=== PATIENT | male | born 1960 | race Caucasian/White ===

== ENCOUNTER 2019-06-03 00:06 | Day surgery (SDC) | payer OTHER ==
[~2019-06-03 00:06] MED LIST: ALBU90OI INH; ALBU90OI PO; AMLO5; BENZ100A PO; CARV3.125 PO; CARV6.25 PO; Diovan320 MG PO; HYDCHL25 PO; Hydrochloroth12.5 MG; LORTAB 5-325 M1 EACH PO; Norco 5-325 Ta1 EACH PO; SERT50 PO; TRAM50 PO; Ultram50 MG PO; VICODIN HP 10-1 EACH PO; XARELTO10 MG PO; XARELTO20 MG PO; ZOLP5 PO; Zithromax250 MG PO; Zofran Odt8 MG SL
== END 2019-06-03 23:09 | disposition home or self-care (01) ==
LOC: WOUND 00:06
DX: L97.812 Non-pressure chronic ulcer of other part of right lower leg with fat layer exposed (principal)
CPT/HCPCS: G0463

== ENCOUNTER 2019-06-10 01:00 | Day surgery (SDC) | payer OTHER | END 2019-06-10 22:49 | disposition home or self-care (01) | LOC: WOUND 01:00 | DX: L97.812 Non-pressure chronic ulcer of other part of right lower leg with fat layer exposed (principal); I13.0 Hypertensive heart and chronic kidney disease with heart failure and stage 1 through stage 4 chronic kidney disease, or unspecified chronic kidney disease; I50.22 Chronic systolic (congestive) heart failure; I12.9 Hypertensive chronic kidney disease with stage 1 through stage 4 chronic kidney disease, or unspecified chronic kidney disease; N18.9 Chronic kidney disease, unspecified; Z72.0 Tobacco use; G47.33 Obstructive sleep apnea (adult) (pediatric); J44.9 Chronic obstructive pulmonary disease, unspecified ==

== ENCOUNTER 2019-06-17 00:05 | Day surgery (SDC) | payer OTHER | END 2019-06-17 22:38 | disposition home or self-care (01) | LOC: WOUND 00:05 | DX: L97.811 Non-pressure chronic ulcer of other part of right lower leg limited to breakdown of skin (principal); I13.0 Hypertensive heart and chronic kidney disease with heart failure and stage 1 through stage 4 chronic kidney disease, or unspecified chronic kidney disease; N18.9 Chronic kidney disease, unspecified; I50.22 Chronic systolic (congestive) heart failure; I48.0 Paroxysmal atrial fibrillation; E66.9 Obesity, unspecified; Z68.44 Body mass index [BMI] 60.0-69.9, adult; Z86.718 Personal history of other venous thrombosis and embolism ==

== ENCOUNTER 2019-06-24 00:39 | Day surgery (SDC) | payer OTHER | END 2019-06-24 22:49 | disposition home or self-care (01) | LOC: WOUND 00:39 | DX: L97.812 Non-pressure chronic ulcer of other part of right lower leg with fat layer exposed (principal); I13.0 Hypertensive heart and chronic kidney disease with heart failure and stage 1 through stage 4 chronic kidney disease, or unspecified chronic kidney disease; N18.9 Chronic kidney disease, unspecified; I50.22 Chronic systolic (congestive) heart failure; I48.0 Paroxysmal atrial fibrillation; E66.9 Obesity, unspecified; Z68.44 Body mass index [BMI] 60.0-69.9, adult ==

== ENCOUNTER 2019-07-01 00:29 | Day surgery (SDC) | payer OTHER | END 2019-07-01 22:48 | disposition home or self-care (01) | LOC: WOUND 00:29 | DX: S81.801A Unspecified open wound, right lower leg, initial encounter (principal); L97.812 Non-pressure chronic ulcer of other part of right lower leg with fat layer exposed; I10 Essential (primary) hypertension; I13.0 Hypertensive heart and chronic kidney disease with heart failure and stage 1 through stage 4 chronic kidney disease, or unspecified chronic kidney disease; I50.22 Chronic systolic (congestive) heart failure; G47.33 Obstructive sleep apnea (adult) (pediatric); J44.9 Chronic obstructive pulmonary disease, unspecified; E66.9 Obesity, unspecified; Z86.718 Personal history of other venous thrombosis and embolism ==

== ENCOUNTER 2019-07-15 00:22 | Day surgery (SDC) | payer OTHER | END 2019-07-15 22:42 | disposition home or self-care (01) | LOC: WOUND 00:22 | DX: L97.812 Non-pressure chronic ulcer of other part of right lower leg with fat layer exposed (principal); S80.11XD Contusion of right lower leg, subsequent encounter; L97.829 Non-pressure chronic ulcer of other part of left lower leg with unspecified severity; I13.0 Hypertensive heart and chronic kidney disease with heart failure and stage 1 through stage 4 chronic kidney disease, or unspecified chronic kidney disease; N18.9 Chronic kidney disease, unspecified; I50.22 Chronic systolic (congestive) heart failure ==

== ENCOUNTER 2019-07-17 13:53 | Day surgery (SDC) | payer OTHER | END 2019-07-17 22:54 | disposition home or self-care (01) | LOC: WOUND 13:53 | DX: L97.812 Non-pressure chronic ulcer of other part of right lower leg with fat layer exposed (principal); S80.11XD Contusion of right lower leg, subsequent encounter; I13.0 Hypertensive heart and chronic kidney disease with heart failure and stage 1 through stage 4 chronic kidney disease, or unspecified chronic kidney disease; I50.22 Chronic systolic (congestive) heart failure; N18.9 Chronic kidney disease, unspecified | CPT/HCPCS: G0463 ==

== ENCOUNTER 2019-07-29 00:22 | Day surgery (SDC) | payer OTHER | END 2019-07-29 22:45 | disposition home or self-care (01) | LOC: WOUND 00:22 | DX: L97.812 Non-pressure chronic ulcer of other part of right lower leg with fat layer exposed (principal); I13.0 Hypertensive heart and chronic kidney disease with heart failure and stage 1 through stage 4 chronic kidney disease, or unspecified chronic kidney disease; N18.9 Chronic kidney disease, unspecified; I50.22 Chronic systolic (congestive) heart failure; E66.9 Obesity, unspecified; G47.33 Obstructive sleep apnea (adult) (pediatric); F17.200 Nicotine dependence, unspecified, uncomplicated; F41.9 Anxiety disorder, unspecified; F32.9 Major depressive disorder, single episode, unspecified; J44.9 Chronic obstructive pulmonary disease, unspecified; Z68.44 Body mass index [BMI] 60.0-69.9, adult ==

== ENCOUNTER 2019-08-05 00:11 | Day surgery (SDC) | payer OTHER | END 2019-08-05 22:42 | disposition home or self-care (01) | LOC: WOUND 00:11 | DX: L97.812 Non-pressure chronic ulcer of other part of right lower leg with fat layer exposed (principal); I73.9 Peripheral vascular disease, unspecified; I13.0 Hypertensive heart and chronic kidney disease with heart failure and stage 1 through stage 4 chronic kidney disease, or unspecified chronic kidney disease; N18.9 Chronic kidney disease, unspecified; I50.22 Chronic systolic (congestive) heart failure; G47.33 Obstructive sleep apnea (adult) (pediatric); F32.9 Major depressive disorder, single episode, unspecified; F41.9 Anxiety disorder, unspecified; I48.0 Paroxysmal atrial fibrillation; J44.9 Chronic obstructive pulmonary disease, unspecified; M06.9 Rheumatoid arthritis, unspecified; E66.9 Obesity, unspecified; Z68.44 Body mass index [BMI] 60.0-69.9, adult; Z79.899 Other long term (current) drug therapy; Z88.5 Allergy status to narcotic agent; Z91.038 Other insect allergy status; Z91.09 Other allergy status, other than to drugs and biological substances | CPT/HCPCS: Q4196 ==

== ENCOUNTER 2019-08-14 15:41 | Day surgery (SDC) | payer OTHER | END 2019-08-14 23:16 | disposition home or self-care (01) | LOC: WOUND 15:41 | DX: L97.811 Non-pressure chronic ulcer of other part of right lower leg limited to breakdown of skin (principal); I13.0 Hypertensive heart and chronic kidney disease with heart failure and stage 1 through stage 4 chronic kidney disease, or unspecified chronic kidney disease; N18.9 Chronic kidney disease, unspecified; I50.22 Chronic systolic (congestive) heart failure; G47.33 Obstructive sleep apnea (adult) (pediatric); I48.0 Paroxysmal atrial fibrillation; J44.9 Chronic obstructive pulmonary disease, unspecified; F32.9 Major depressive disorder, single episode, unspecified; F41.9 Anxiety disorder, unspecified; G47.30 Sleep apnea, unspecified; M06.9 Rheumatoid arthritis, unspecified; E66.9 Obesity, unspecified; Z68.44 Body mass index [BMI] 60.0-69.9, adult; Z88.5 Allergy status to narcotic agent; Z91.038 Other insect allergy status; Z79.899 Other long term (current) drug therapy | CPT/HCPCS: G0463 ==

== ENCOUNTER 2021-09-08 12:48 | Emergency (ER) | payer OTHER ==
[~2021-09-08] VITALS: Ht 182.9 cm; Wt 210.9 kg
[2021-09-08] MEDS ORDERED: LOSA50 PO (13:03)
[2021-09-08] MEDS ORDERED: CEPH500 PO (15:01)
== END 2021-09-08 15:35 | disposition home or self-care (01) ==
LOC: ER 12:48
DX: L03.116 Cellulitis of left lower limb (principal); Z91.030 Bee allergy status; Z88.5 Allergy status to narcotic agent; Z79.899 Other long term (current) drug therapy; I10 Essential (primary) hypertension; I48.91 Unspecified atrial fibrillation; E66.9 Obesity, unspecified; F17.200 Nicotine dependence, unspecified, uncomplicated
CPT/HCPCS: 93971; 99284-25

== ENCOUNTER → 2021-09-29 | Outpatient (CLI) | payer OTHER ==
[~2021-09-29] MED LIST changes: +CEPH500 PO; +LOSA50 PO
== END | disposition home or self-care (01) ==
LOC: LAB SHORT 15:32
DX: R31.9 Hematuria, unspecified (principal)
CPT/HCPCS: 87086

== ENCOUNTER → 2023-01-29 | Outpatient (CLI) | payer OTHER ==
[2023-01-29 12:11] LABS: BASOPHILS ABSOLUTE AUTO 0.07 K/mm3 (0.00-0.23); BASOPHILS PERCENT AUTO 1 % (0-2); EOSINOPHILS ABSOLUTE AUTO 0.42 K/mm3 (0.00-0.68); EOSINOPHILS PERCENT AUTO 6 % (0-6); Hematocrit 41.3 % (37.0-53.0); Hemoglobin 13.1 g/dL (13.5-17.5); IMMATURE GRAN ABSOLUTE AUTO 0.02 K/mm3 (0.00-0.10); IMMATURE GRAN PERCENT AUTO 0 % (0-1); LYMPHOCYTES ABSOLUTE AUTO 0.89 K/mm3 (0.84-5.20); LYMPHOCYTES PERCENT AUTO 13 % (21-46); MONOCYTES ABSOLUTE AUTO 0.35 K/mm3 (0.16-1.47); MONOCYTES PERCENT AUTO 5 % (4-13); Mean Corpuscular HGB 28.7 pg (26.0-34.0); Mean Corpuscular HGB Conc 31.7 g/dL (31.5-36.5); Mean Corpuscular Volume 90 fL (80-100); Mean Platelet Volume 9.6 fL (9.1-12.4); NEUTROPHILS ABSOLUTE AUTO 4.98 K/mm3 (1.96-9.15); NEUTROPHILS PERCENT AUTO 74 % (41-73); Platelet Count 197 K/mm3 (150-400); RDW Coefficient Variation 13.2 % (11.7-14.2); RDW Standard Deviation 43.5 fL (35.1-46.3); Red Blood Cell Count 4.57 M/mm3 (4.30-5.90); White Blood Cell Count 6.73 K/mm3 (4.00-11.30)
[2023-01-29 12:14] LABS: Alanine Aminotransfer (ALT/SGP 20 U/L (12-78); Albumin/Globulin Ratio 0.8 (0.8-1.8); Alk Phos 89 U/L (50-136); Anion Gap 4 mmol/L (6-16); Aspartate Aminotrans (AST/SGOT 11 U/L (12-37); Bilirubin, Total 0.5 mg/dL (0.1-1.0); Blood Urea Nitrogen 16 mg/dL (8-24); Bun/Creatinine Ratio 13.2 (12.0-20.0); CHOL/HDL RATIO 2.9; CO2, Blood 26 mmol/L (21-32); Calcium, Blood 8.4 mg/dL (8.5-10.1); Chloride, Blood 106 mmol/L (98-108); Cholesterol 145 mg/dL (50-200); Creatinine, Blood 1.21 mg/dL (0.60-1.20); Globulin, Blood 3.7 g/dL (2.2-4.0); Glomerular Filtration Rate 67 (60-); Glucose, Blood 154 mg/dL (70-99); HDL Cholesterol 50 mg/dL (>39); LDL/HDL RATIO 1.6; Low Density Lipoprotein Chol 80 mg/dL (0-110); Sodium, Blood 136 mmol/L (136-145); Total Protein, Blood 6.7 g/dL (6.4-8.2); Triglycerides 75 mg/dL (30-160); Very Low Density Lipoprot Chol 15 mg/dL (6-32)
== END | disposition home or self-care (01) ==
LOC: LAB 09:40 → LAB SHORT 09:40
PROVIDERS: Nurse Practitioner Family
DX: J44.9 Chronic obstructive pulmonary disease, unspecified (principal); E66.01 Morbid (severe) obesity due to excess calories; I10 Essential (primary) hypertension; J41.1 Mucopurulent chronic bronchitis; Z68.44 Body mass index [BMI] 60.0-69.9, adult
CPT/HCPCS: 80053; 80061; 85025

== ENCOUNTER 2023-02-01 10:01 | Emergency (ER) | payer OTHER ==
[~2023-02-01] VITALS: Ht 180.3 cm; Wt 238.1 kg
[2023-02-01] MEDS ORDERED: Hydroxyzine HCl50 MG (10:13)
[2023-02-01] MEDS ORDERED: TRAZ150T57 PO (10:13)
[2023-02-01] MEDS ORDERED: ZOLOFT10013 PO (10:13)
[2023-02-01] MEDS ORDERED: Ventolin/Prove6.7 GM INH (10:13)
[2023-02-01] MEDS ORDERED: AMIT50 PO (10:13)
[2023-02-01] MEDS ORDERED: GABAPENTIN600 MG PO (10:13)
[2023-02-01 10:39] LABS: BASOPHILS ABSOLUTE AUTO 0.08 K/mm3 (0.00-0.23); BASOPHILS PERCENT AUTO 1 % (0-2); EOSINOPHILS ABSOLUTE AUTO 0.43 K/mm3 (0.00-0.68); EOSINOPHILS PERCENT AUTO 5 % (0-6); Hematocrit 44.4 % (37.0-53.0); Hemoglobin 14.1 g/dL (13.5-17.5); IMMATURE GRAN ABSOLUTE AUTO 0.03 K/mm3 (0.00-0.10); IMMATURE GRAN PERCENT AUTO 0 % (0-1); LYMPHOCYTES ABSOLUTE AUTO 0.92 K/mm3 (0.84-5.20); LYMPHOCYTES PERCENT AUTO 11 % (21-46); MONOCYTES ABSOLUTE AUTO 0.79 K/mm3 (0.16-1.47); MONOCYTES PERCENT AUTO 9 % (4-13); Mean Corpuscular HGB 28.5 pg (26.0-34.0); Mean Corpuscular HGB Conc 31.8 g/dL (31.5-36.5); Mean Corpuscular Volume 90 fL (80-100); Mean Platelet Volume 9.1 fL (9.1-12.4); NEUTROPHILS ABSOLUTE AUTO 6.53 K/mm3 (1.96-9.15); NEUTROPHILS PERCENT AUTO 74 % (41-73); Platelet Count 230 K/mm3 (150-400); RDW Coefficient Variation 13.2 % (11.7-14.2); RDW Standard Deviation 42.9 fL (35.1-46.3); Red Blood Cell Count 4.95 M/mm3 (4.30-5.90); White Blood Cell Count 8.78 K/mm3 (4.00-11.30)
[2023-02-01 10:53] LABS: Albumin, Blood 3.3 g/dL (3.4-5.0); Albumin/Globulin Ratio 0.8 (0.8-1.8); Creatinine, Blood 1.13 mg/dL (0.60-1.20); Globulin, Blood 4.2 g/dL (2.2-4.0); Total Protein, Blood 7.5 g/dL (6.4-8.2)
[2023-02-01] MEDS ORDERED: PRED20 PO (12:39)
[2023-02-01] MEDS ORDERED: AZIT250 PO (12:42)
[2023-02-01] MEDS ORDERED: HYDR1TAB94 PO (12:42)
[2023-02-01 12:45] VITALS: BP 149/90
== END 2023-02-01 13:12 | disposition home or self-care (01) ==
LOC: ER 10:01
PROVIDERS: Emergency Medicine
DX: J44.1 Chronic obstructive pulmonary disease with (acute) exacerbation (principal); I48.91 Unspecified atrial fibrillation; F17.210 Nicotine dependence, cigarettes, uncomplicated; Z86.718 Personal history of other venous thrombosis and embolism; Z79.01 Long term (current) use of anticoagulants
CPT/HCPCS: 71046; 80053; 83880; 85025; 85379; 96374; 99284-25; A9270; J2930

== ENCOUNTER 2023-02-02 11:15 | Emergency (ER) | payer OTHER ==
[~2023-02-02] VITALS: Ht 172.7 cm; Wt 226.8 kg
[~2023-02-02 11:15] MED LIST changes: +AMIT50 PO; -AMLO5; +AMLO5 PO; +AZIT250 PO; +GABAPENTIN600 MG PO; +HYDR1TAB94 PO; +Hydroxyzine HCl50 MG; +PRED20 PO; +TRAZ150T57 PO; +Ventolin/Prove6.7 GM INH; +ZOLOFT10013 PO
[2023-02-02 11:59] VITALS: BP 146/101
== END 2023-02-02 19:00 | disposition home or self-care (01) ==
LOC: ER 11:15
DX: M25.511 Pain in right shoulder (principal); M54.2 Cervicalgia; W18.30XA Fall on same level, unspecified, initial encounter; Z88.5 Allergy status to narcotic agent; Z91.030 Bee allergy status; Z79.899 Other long term (current) drug therapy; I48.91 Unspecified atrial fibrillation; F17.200 Nicotine dependence, unspecified, uncomplicated
CPT/HCPCS: 72040; 73030; 99284-25; A9270

== ENCOUNTER 2023-02-04 11:50 | Observation (INO) | payer OTHER ==
[~2023-02-04] VITALS: Ht 180.3 cm; Wt 243.0 kg
[~2023-02-04 11:50] MED LIST changes: -Ventolin/Prove6.7 GM INH
[2023-02-04 13:23] LABS: BASOPHILS ABSOLUTE AUTO 0.02 K/mm3 (0.00-0.23); BASOPHILS PERCENT AUTO 0 % (0-2); EOSINOPHILS PERCENT AUTO 0 % (0-6); Hematocrit 42.7 % (37.0-53.0); Hemoglobin 13.9 g/dL (13.5-17.5); IMMATURE GRAN ABSOLUTE AUTO 0.03 K/mm3 (0.00-0.10); IMMATURE GRAN PERCENT AUTO 0 % (0-1); LYMPHOCYTES PERCENT AUTO 7 % (21-46); MONOCYTES ABSOLUTE AUTO 0.75 K/mm3 (0.16-1.47); MONOCYTES PERCENT AUTO 8 % (4-13); Mean Corpuscular HGB 28.5 pg (26.0-34.0); Mean Corpuscular HGB Conc 32.6 g/dL (31.5-36.5); Mean Corpuscular Volume 88 fL (80-100); Mean Platelet Volume 9.1 fL (9.1-12.4); NEUTROPHILS ABSOLUTE AUTO 7.53 K/mm3 (1.96-9.15); NEUTROPHILS PERCENT AUTO 84 % (41-73); Platelet Count 218 K/mm3 (150-400); RDW Coefficient Variation 13.2 % (11.7-14.2); RDW Standard Deviation 42.1 fL (35.1-46.3); Red Blood Cell Count 4.87 M/mm3 (4.30-5.90); White Blood Cell Count 8.93 K/mm3 (4.00-11.30)
[2023-02-04 13:39] LABS: Bun/Creatinine Ratio 26.2 (12.0-20.0); Calcium, Blood 8.7 mg/dL (8.5-10.1); Creatinine, Blood 1.07 mg/dL (0.60-1.20); Potassium, Blood 4.1 mmol/L (3.5-5.5)
[2023-02-05 10:17] LABS: Influenza A, PCR NEGATIVE (NEGATIVE); Influenza B, PCR NEGATIVE (NEGATIVE); Resp Syncytial Virus, PCR NEGATIVE (NEGATIVE); SARS-Cov-2 (COVID-19) PCR, MMC NEGATIVE (NEGATIVE)
[2023-02-05] MEDS ORDERED: HYDHCL25 PO ×2 (16:20→17:56)
[2023-02-05 16:47] VITALS: BP 116/86
[2023-02-05 19:50] VITALS: BP 141/67
--- NOTE | 2023-02-06 05:28 | NUR ---
Shift Summary Pt is bedrest d/t obeisity and R leg weakness/injury. He has a recent history of falls. He has urinary urgency, needs help with the urinal. Disposable pads are placed under is perineal area to absorb moisture. Pt rcvd mukund-care bath this shift, there is redness around his ground and under folds around belly. He has a friction wound burn on his L buttocks, Mepilex was replaced last night. C/O pain in R leg, rcvd a one time order for Toradol from hospitalist. Pt on CPAP at night. Pt on RA and cont. BiOX, O2 sat > 92%. Awaiting SNF placement. AOx4, pleasant and cooperative with care.
[2023-02-06 05:38] VITALS: BP 144/84
[2023-02-06 08:07] VITALS: BP 151/76
--- NOTE | 2023-02-06 10:32 | NUR ---
PT COUGHING UP BLOOD REPORTED TO DR. RÍOS
[2023-02-06 15:34] VITALS: BP 142/77
--- NOTE | 2023-02-06 17:50 | NUR ---
SHIFT SUMMARY PT A&OX4 AND IN PLEASENT MOOD. PHYSICAL THERAPY CAME TO WORK W/ PT TODAY, UNABLE TO PERFORM BED EXERSIZE, ATTEMPTED TO FIND BARIATRIC CHAIR FOR ROOM. TOLERATING PO INTAKE WELL, VSS. AT BEDSIDE T/O SHIFT. RED FOLDS REPORTED TO AND MEDICATED PER EMAR. CALL LIGHT W/IN REACH.
[2023-02-06 19:26] VITALS: BP 144/70
[2023-02-07 05:19] VITALS: BP 130/79
--- NOTE | 2023-02-07 05:58 | NUR ---
Shift Summary Pt did not cough up any blood this shift. Rcvd 1 dose of 15mg Toradol for 8/10 R knee pain. He has significant red areas under folds, cleansed those areas with soap and water and applied Nystatin powder. Pt requested PRN yuliana beltran. Slept with CPAP and cont. BiOX. He had several desaturations down to mid 80's which would last from 5-100 seconds and then O2 would go back to greater than 92. Calls appropriatly for help with urinal when needing to void. Slept well t/o most of the night. AOx4. pleasant and cooperative.
[2023-02-07 07:36] VITALS: BP 142/93
[2023-02-07 15:13] VITALS: BP 147/84
--- NOTE | 2023-02-07 17:40 | NUR ---
SHIFT SUMMARY: PT A/O X4, LIFT PT. PT PAIN TO R KNEE MANAGED WITH REPOSITIONING AND TORADOL. PT ABLE TO REPOSITION SELF, AND ASSIST WITH ROLL CHANGES BY ROLLING TO SIDE. PT DOES NEED ASSISTANCE AND VERBAL CUES TO REPOSITION. PT CONITNUES TO HAVE REDDENED MOIST AREAS TO SKIN FOLDS WITH YEAST SMELL. SKIN FOLDS CLEANSED AND DRIED AND APPLIED METRONIDAZOLE POWDER. PT HAS ABRASION TO L SIDE HIP WHICH HE DESCRIBES HE OBTAINED FROM BEING DRAGGED OUT OF HIS BATHROOM ON THE CARPET BY EMS. WOUND CLEANSED AND PATTED DRY, MEPILEX DRESSING APPLIED. WOUND BED HAS SCANT BLEEDING WITH NO SIGNS OF INFECTION. PT CONTINUES TO COUGH UP PINK TINGED SPUTUM THROUGHOUT THE DAY AND COMPLAINS "MY VOCAL CORDS HURT." PT DENIES SORE THROAT. LS ARE CLEAR. PT IS PLEASANT AND COOPERATIVE WITH CARE.
[2023-02-07 20:11] VITALS: BP 128/92
--- NOTE | 2023-02-08 04:30 | NUR ---
PATIENT A&OX4, COOPERATIVE WITH CARE. ABLE TO HELP WITH REPOSITIONING IN BED. RIGHT KNEE PAIN RANGED FROM 6-10/10. MANAGED WITH 15MG TORADOL AND TYLENOL. CALLS APPROPRIATELY. LOOKING FORWARD TO POSSIBILITY OF BARIATRIC SURGERY SOMETIME THIS YEAR AFTER COMPLETING PT REHAB FOR HIS RIGHT LEG
[2023-02-08 08:46] VITALS: BP 155/93
[2023-02-08 15:47] VITALS: BP 139/82
--- NOTE | 2023-02-08 18:18 | NUR ---
SHIFT SUMMARY: PT A/O X 4, LIFT PT TO CHAIR. PT UP TO CHAIR THROUGH LUNCH. WORKED WITH PT AND WAS ABLE TO STAND WITH WALKER BUT R KNEE WOULD BUCKLE IF HE ATTEMPTED TO TAKE A STEP. PT PT R KNEE PAIN MANAGED WITH TORADOL AND TYLENOL AT THIS TIME. PT PLEASANT AND COOPERATIVE WITH CARE. PT TAKING ACTIVE INTEREST IN DIET EDUCATION. PARTICIPATES WELL WITH PT. RASH TO SKIN FOLDS IMPROVING.
[2023-02-08 19:24] VITALS: BP 116/74
--- NOTE | 2023-02-09 03:32 | NUR ---
PATIENT AWAKE FREQUENTLY THROUGHOUT THE NIGHT. MULTIPLE EPISODES OF LARGE URINE INCONTINENCE EACH TIME PATIENT WOULD FALL ASLEEP. KEENAN IS ABLE TO ASSIST IN TURNING IN BED WHICH IS A BIG HELP TO THE STAFF. WOUNDS UNDER PANNUS ARE QUITE RAW. AREA CLEANSED WITH SOFT WIPES AND WOUND CLEANSER AND DRIED, THEN NYSTATIN POWDER APPLIED TO NON OPEN AREAS, AND CREAM TO AREAS THAT HAVE SPLIT. PILLOWCASES PLACED TO TRY TO AVOID THE INCREASED MOISTURE BETWEEN CLEANSINGS. WOULD APPRECIATE NYSTATIN CREAM FOR OPENED AREAS. PATIENT VERY PLEASANT AND COOPERATIVE WITH CARE
[2023-02-09 05:02] VITALS: BP 143/72
[2023-02-09 05:24] LABS: Hematocrit 40.4 % (37.0-53.0); Hemoglobin 13.3 g/dL (13.5-17.5); Mean Corpuscular HGB 28.3 pg (26.0-34.0); Mean Corpuscular HGB Conc 32.9 g/dL (31.5-36.5); Mean Corpuscular Volume 86 fL (80-100); Platelet Count 259 K/mm3 (150-400); RDW Coefficient Variation 13.2 % (11.7-14.2); RDW Standard Deviation 40.9 fL (35.1-46.3); White Blood Cell Count 11.88 K/mm3 (4.00-11.30)
[2023-02-09 06:07] LABS: Bun/Creatinine Ratio 31.3 (12.0-20.0); Calcium, Blood 8.5 mg/dL (8.5-10.1); Creatinine, Blood 1.15 mg/dL (0.60-1.20); Potassium, Blood 4.3 mmol/L (3.5-5.5)
[2023-02-09 07:41] VITALS: BP 144/91
[2023-02-09 17:00] VITALS: BP 178/91
[2023-02-09 18:09] VITALS: BP 181/81
--- NOTE | 2023-02-09 18:53 | NUR ---
SHIFT SUMMARY PT A&OX4, VSS/2LNC, TCDB EDU/ENC/DEMONSTRATED, UP TO CHAIR FOR FEW HOURS/LIFT TO RETURN PT TO BED, PT CAN REPOSITION SELF WITH TREND POSITION, SERA PO, VOIDING LG AMTS URINE/FEM URINAL W/ 2 PP ASSIST, PAIN MANAGED WITH TORADOL, WILL REPORT TO ONCOMING NOC RN.
[2023-02-09 19:10] VITALS: BP 138/88
[2023-02-10 04:12] VITALS: BP 139/96
--- NOTE | 2023-02-10 06:20 | NUR ---
TORADOL REQUESTED BY PATIENT Q8 HOURS FOR KNEE PAIN. AO, PLEASANT, DID TRANSFER OUT OF BED LAST NIGHT. PUREWICK EFFECTIVE FOR VOIDING. ASSISTS WITH BED MOBILITY, NWB ON RLE. NO EVENTS DURING THE SHIFT.
[2023-02-10 07:35] VITALS: BP 142/98
[2023-02-10 15:34] VITALS: BP 142/81
--- NOTE | 2023-02-10 19:44 | NUR ---
SUMMARY-NO ACUTE EVENTS THIS SHIFT. AAOX4. X2 ASSIST IN BED. CALM AND COOPERATIVE.
[2023-02-10 19:52] VITALS: BP 144/92
--- NOTE | 2023-02-11 03:56 | NUR ---
shift summery, Pt requested an hs snack at bedtime ans was given a sandwitch. pt also requested toridol for pain. pt given all his hs meds and appeared to be sleeping comfortably. call light in reach. pt has purewick and pt is putting out clear yellow urine.
[2023-02-11 03:58] VITALS: BP 140/89
[2023-02-11 07:20] VITALS: BP 159/88
[2023-02-11 14:48] VITALS: BP 123/74
--- NOTE | 2023-02-11 17:47 | NUR ---
SUMMARY- NO ACUTE EVENTS THIS SHIFT. PT KEPT HAVING INCONTINENT EPISODES/FULL BED CHANGES WITH PURE WICK IN PLACE. RN REMOVED PURE WICK AND ASKED PT TO CALL EVERY TIME HE HAD TO URINATE. PT HAS HAD ZERO INCONTINENT EPISODES THIS SHIFT SINCE THIS MORNING.
[2023-02-11 19:34] VITALS: BP 137/74
--- NOTE | 2023-02-11 23:55 | NUR ---
BEGINNING OF SHIFT THIS STUDENT NURSE ASSUMED CARE OF THE PT AT 1900. PT A&O X4, COMPLAINED OF 9/10 PAIN TO HIS RLE. NURSE DAINA DANGELO ADMINISTERED TORADOL FOR PAIN, AND WAS INFORMED THAT NAPROXEN WOULD BE ADMINISTERED INSTEAD OF TORADOL Q8 HOURS FOR PAIN. PT REQUESTED THE BEDPAN AND WAS CONTINENT OF BOWELS. THIS STUDENT NURSE ADMINISTERED HS MEDICATIONS AND PREFORMED HIS PHYSICAL ASSESSMENT. PRESCRIBED ELAVIL WITHHELD DUE TO ADVERSE INTERACTIONS WIH ADMINISTERED TRAZODONE. WILL RELAY TO DAY SHIFT AND PROVIDER. PATIENT LEFT IN STATE OF COMFORT AND SAFETY, CALL LIGHT WITHIN REACH, TOP BED RAILS RAISED.
[2023-02-12 02:20] VITALS: BP 118/67
--- NOTE | 2023-02-12 04:30 | NUR ---
SHIFT SUMMARY THIS STUDENT NURSE ADRESSED PT'S PAIN THROUGHOUT THE SHIFT, AND MAINTAINED ADEQUATE PRECAUTIONS TO PREVENT FUTURE FALLS. PATIENT REMAINED A&O X4 AND UNDERSTOOD OWN LIMITATIONS. STAFF PRESENT TO HELP WITH ANY NECCESSARY AMBULATION/BED POSITIONING, AND PT REMAINED ON BED REST. PT ADMINISTERED THE PRESCRIBED AMBIEN BY NURSE DAINA DANGELO, AND RESTED COMFORTABLY THROUGH THE SHIFT AFTER ABOUT 0030. CPAP APPLIED BY RESPIRATORY THERAPY. PT REMAINED IN A STATE OF SAFETY THROUGHOUT MY SHIFT, NONSKID SOCKS PRESENT, BEDREST MAINTAINED, TOP BED RAILS RAISED, AND CALL LIGHT WITHIN REACH. WILL CONTINUE TO MONITOR THROUGH MY SHIFT.
--- NOTE | 2023-02-12 04:59 | NUR ---
I HAVE OBSERVED STUDENT INTERACTION/NURSING PERFORMANCE WITH PT AND AGRE WITH HER DOCUMENTATION. - RE MADELINE ESQUEDA STUDENT
[2023-02-12 07:37] VITALS: BP 152/86
[2023-02-12 14:43] VITALS: BP 130/82
--- NOTE | 2023-02-12 18:31 | NUR ---
SUMMARY-PT A/O X4- USES CALL LIGHT. 2-3 PERSON ROLL FOR SKIN CARE AND LINEN CHANGE. USES URINAL BUT FREQ MESSES RELATED TO LG PANUS AND ANATOMY. CLEANSED RED/YEASTY SKIN FOLDS, SOME WITH AREA OF SKINN SPLIT IN R PECTORAL FOLD AND L GROIN FOLD, APPLIED SKIN BARRIER AND MICONAZOLE. PT C/O PAIN IN R KNEE SINCE FALL. TYLENOL INEFFECTIVE THIS AM. ULTRAM GIVEN 1320 WITH MOD RELEIF- STATES IT TOOK THE EDGE OFF. PT DECLINED TO WORK WITH PT/OT TODAY, STATING HE IS TOO EXHAUSTED FROM PREVOUS DAY. PT TOLERATING FOOD AND FLUID. WILL REPORT TO LAUREN WYATT
[2023-02-12 19:46] VITALS: BP 134/79
[2023-02-13 01:21] VITALS: BP 117/68
[2023-02-13 02:53] VITALS: BP 123/62
--- NOTE | 2023-02-13 04:09 | NUR ---
SHIFT MOSTLY UNREMARKABLE. PT TOOK 2100 MEDICATIONS WITHOUT DIFFICULTY AND HAS SLEPT THROUGH MUCH OF REMAINDER OF SHIFT. CALLS APPROPRIATELY TO HAVE ASSISTANCE WITH URINAL. AWOKE EARLY THIS MORNING WITH REPORTED 10/10 PAIN ON THE TOP OF HIS RIGHT FOOT. ASSESSMENT UNREMARKABLE, NO STREAKING, SWELLING, REDNESS, WARMTH, ETC. NOT TENDER TO THE TOUCH. PT THOUGHT IT MAY BE DUE TO PROLONGED USE OF COMPRESSION STOCKINGS. HX OF NEUROPATHY. REMOVED COMPRESSION STOCKINGS FOR TIME BEING AND ADMINISTERED PRN PAIN MEDICATION PT HAS BEEN SLEEPING SINCE. CPAP ON OVER THE COURSE OF THE LATE EVENING AND MORNING, SATTING >92% ON CONTINUOUS PULSE OX. BED LOCKED IN LOWEST POSITION. CALL LIGHT LEFT WITHIN REACH.
[2023-02-13 07:44] VITALS: BP 145/83
[2023-02-13 16:07] VITALS: BP 134/63
--- NOTE | 2023-02-13 16:22 | NUR ---
PATIENT IS ALERT AND ORIENTED AND COOPERATIVE WITH CARE. [facility]. HE WORKED WITH OT TODAY AND AMBULATED IN HIS ROOM. PATIENT NEEDS ASSISTANCE USING THE URINAL. HE HAD A BM ON THE BSC TODAY. PATIENT'S WAS AT THE BEDSIDE FOR A SHORT TIME TODAY. PAIN MANAGED WITH TYLENOL PER EMAR. WILL CONTINUE TO MONITOR
[2023-02-13 19:10] VITALS: BP 130/61
[2023-02-14 03:20] VITALS: BP 127/68
--- NOTE | 2023-02-14 05:53 | NUR ---
PATIENT REMAINS ALERT AND ORIENTED X4, COOPERATIVE WITH CARE. REMAINED IN BED FOR THE NIGHT, AND IS A LIFT OTHERWISE. GOOD U/O, CALLS FOR URINAL ASSISTANCE, NO BM THIS SHIFT. OPEN AREAS IS ALL SKIN FOLDS TREATED WITH CREAMS AND POWDER PER MAR. NO OTHER ISSUES TO REPORT.
[2023-02-14 07:24] VITALS: BP 136/91
[2023-02-14] MEDS ORDERED: ACET500 PO (10:08)
[2023-02-14] MEDS ORDERED: MICONAZOLE NITR85 GM TOP (10:09)
[2023-02-14] MEDS ORDERED: TRAM50 PO (10:10)
[2023-02-14] MEDS ORDERED: FAMO20 PO (10:10)
== END 2023-02-14 16:15 | disposition home health service (06) ==
LOC: ER 11:50 → ERHOLD 11:51 → MEDS 11:51
PROVIDERS: Student in an Organized Health Care Education/Training Program; ADMIT Internal Medicine
DX: M17.11 Unilateral primary osteoarthritis, right knee (principal); I48.91 Unspecified atrial fibrillation; E66.01 Morbid (severe) obesity due to excess calories; J44.9 Chronic obstructive pulmonary disease, unspecified; R29.6 Repeated falls; R04.2 Hemoptysis; I10 Essential (primary) hypertension; F17.200 Nicotine dependence, unspecified, uncomplicated; Z20.822 Contact with and (suspected) exposure to COVID-19; Z91.030 Bee allergy status; Z88.5 Allergy status to narcotic agent; Z91.038 Other insect allergy status; Z79.899 Other long term (current) drug therapy; Z79.01 Long term (current) use of anticoagulants; Z79.52 Long term (current) use of systemic steroids; Z86.718 Personal history of other venous thrombosis and embolism; Z86.711 Personal history of pulmonary embolism; Z68.45 Body mass index [BMI] 70 or greater, adult
CPT/HCPCS: 0241U; 36415; 73562-RT; 80048; 84443; 85025; 85027; 93971; 94640; 94660; 94664; 94762; 96374; 96376; 97110; 97162; 97165; 97530; 97535; 99285-25; A9270; C9113; G0378; J1885; J7512

== ENCOUNTER → 2023-03-08 | Outpatient (CLI) | payer OTHER ==
[~2023-03-08] MED LIST changes: +ACET500 PO; +FAMO20 PO; +HYDHCL25 PO; +MICONAZOLE NITR85 GM TOP
[2023-03-08 11:21] LABS: Albumin, Blood 2.8 g/dL (3.4-5.0); Albumin/Globulin Ratio 0.8 (0.8-1.8); Bilirubin, Total 0.6 mg/dL (0.1-1.0); Bun/Creatinine Ratio 11.5 (12.0-20.0); Calcium, Blood 8.7 mg/dL (8.5-10.1); Creatinine, Blood 1.31 mg/dL (0.60-1.20); Globulin, Blood 3.7 g/dL (2.2-4.0); Potassium, Blood 3.7 mmol/L (3.5-5.5); Total Protein, Blood 6.5 g/dL (6.4-8.2)
== END | disposition home or self-care (01) ==
LOC: LAB SHORT 09:00 → LAB 09:00
PROVIDERS: Nurse Practitioner Family
DX: E11.65 Type 2 diabetes mellitus with hyperglycemia (principal); Z91.89 Other specified personal risk factors, not elsewhere classified
CPT/HCPCS: 80053; 83036

== ENCOUNTER 2023-04-11 13:42 | Emergency (ER) | payer OTHER ==
[~2023-04-11] VITALS: Ht 180.3 cm; Wt 235.9 kg
[~2023-04-11 13:42] MED LIST changes: +Acetaminophen650 M1 PO; +BUSP10 PO; +CORTISONE60 GM TOP; +Cleocin HCl150 MG PO; +FUROSEMIDE20 MG PO; +NYAMYC15 G1 TOP; +NYSTOP15 GM TOP; +SULFAMETHOXAZO1 EAC1 PO; +VISBIOME 112.51 EACH PO
[2023-04-11 17:00] VITALS: BP 102/56
[2023-04-11] MEDS ORDERED: DOCU100 PO (18:46)
[2023-04-11] MEDS ORDERED: SENN187 PO (18:46)
[2023-04-11] MEDS ORDERED: MIRALAX17 GM PO (18:46)
== END 2023-04-11 20:26 | disposition home or self-care (01) ==
LOC: ER 13:42
DX: K59.00 Constipation, unspecified (principal); E66.01 Morbid (severe) obesity due to excess calories; F17.200 Nicotine dependence, unspecified, uncomplicated; M17.0 Bilateral primary osteoarthritis of knee; R53.81 Other malaise; N18.30 Chronic kidney disease, stage 3 unspecified; Z68.45 Body mass index [BMI] 70 or greater, adult; Z88.5 Allergy status to narcotic agent; Z91.030 Bee allergy status; Z79.02 Long term (current) use of antithrombotics/antiplatelets; Z79.899 Other long term (current) drug therapy
CPT/HCPCS: 73560-LT; 73560-RT; 74018; 93005; 93010; 99285-25; A9270

== ENCOUNTER 2023-05-10 09:10 | Emergency (ER) | payer OTHER ==
[~2023-05-10] VITALS: Ht 182.9 cm; Wt 226.8 kg
[~2023-05-10 09:10] MED LIST changes: +DOCU100 PO; +MIRALAX17 GM PO; +SENN187 PO
[2023-05-10 10:40] LABS: BASOPHILS ABSOLUTE AUTO 0.06 K/mm3 (0.00-0.23); BASOPHILS PERCENT AUTO 1 % (0-2); EOSINOPHILS ABSOLUTE AUTO 0.67 K/mm3 (0.00-0.68); EOSINOPHILS PERCENT AUTO 9 % (0-6); IMMATURE GRAN ABSOLUTE AUTO 0.01 K/mm3 (0.00-0.10); IMMATURE GRAN PERCENT AUTO 0 % (0-1); LYMPHOCYTES ABSOLUTE AUTO 1.08 K/mm3 (0.84-5.20); LYMPHOCYTES PERCENT AUTO 15 % (21-46); MONOCYTES ABSOLUTE AUTO 0.76 K/mm3 (0.16-1.47); MONOCYTES PERCENT AUTO 10 % (4-13); Mean Corpuscular HGB 27.8 pg (26.0-34.0); Mean Corpuscular HGB Conc 31.9 g/dL (31.5-36.5); Mean Corpuscular Volume 87 fL (80-100); Mean Platelet Volume 10.4 fL (9.1-12.4); NEUTROPHILS ABSOLUTE AUTO 4.89 K/mm3 (1.96-9.15); NEUTROPHILS PERCENT AUTO 65 % (41-73); Platelet Count 195 K/mm3 (150-400); RDW Coefficient Variation 13.8 % (11.7-14.2); RDW Standard Deviation 44.6 fL (35.1-46.3); Red Blood Cell Count 5.39 M/mm3 (4.30-5.90); White Blood Cell Count 7.47 K/mm3 (4.00-11.30)
[2023-05-10 10:53] LABS: Albumin, Blood 2.8 g/dL (3.4-5.0); Albumin/Globulin Ratio 0.6 (0.8-1.8); Bilirubin, Total 0.6 mg/dL (0.1-1.0); Bun/Creatinine Ratio 10.7 (12.0-20.0); Calcium, Blood 8.9 mg/dL (8.5-10.1); Creatinine, Blood 1.12 mg/dL (0.60-1.20); Globulin, Blood 4.6 g/dL (2.2-4.0); Potassium, Blood 3.8 mmol/L (3.5-5.5); Total Protein, Blood 7.4 g/dL (6.4-8.2)
[2023-05-10 11:15] VITALS: BP 155/112
== END 2023-05-10 14:34 | disposition home or self-care (01) ==
LOC: ER 09:10
PROVIDERS: Emergency Medicine
DX: R07.9 Chest pain, unspecified (principal); L98.499 Non-pressure chronic ulcer of skin of other sites with unspecified severity; Z86.711 Personal history of pulmonary embolism; Z86.718 Personal history of other venous thrombosis and embolism; Z86.73 Personal history of transient ischemic attack (TIA), and cerebral infarction without residual deficits; Z88.5 Allergy status to narcotic agent; Z91.030 Bee allergy status; Z87.891 Personal history of nicotine dependence
CPT/HCPCS: 71046; 80053; 83690; 84484; 85025; 93005; 93010; 96360; 99285-25; A9270; J7030

== ENCOUNTER 2023-05-18 14:21 | Inpatient (IN) | payer OTHER ==
[~2023-05-18] VITALS: Ht 182.9 cm; Wt 218.0 kg
[2023-05-18 15:45] LABS: BASOPHILS ABSOLUTE AUTO 0.08 K/mm3 (0.00-0.23); BASOPHILS PERCENT AUTO 1 % (0-2); EOSINOPHILS ABSOLUTE AUTO 0.82 K/mm3 (0.00-0.68); EOSINOPHILS PERCENT AUTO 11 % (0-6); Hematocrit 47.9 % (37.0-53.0); Hemoglobin 15.7 g/dL (13.5-17.5); IMMATURE GRAN ABSOLUTE AUTO 0.03 K/mm3 (0.00-0.10); IMMATURE GRAN PERCENT AUTO 0 % (0-1); LYMPHOCYTES ABSOLUTE AUTO 1.39 K/mm3 (0.84-5.20); LYMPHOCYTES PERCENT AUTO 18 % (21-46); MONOCYTES ABSOLUTE AUTO 0.66 K/mm3 (0.16-1.47); MONOCYTES PERCENT AUTO 9 % (4-13); Mean Corpuscular HGB 27.8 pg (26.0-34.0); Mean Corpuscular HGB Conc 32.8 g/dL (31.5-36.5); Mean Corpuscular Volume 85 fL (80-100); Mean Platelet Volume 11.1 fL (9.1-12.4); NEUTROPHILS ABSOLUTE AUTO 4.61 K/mm3 (1.96-9.15); NEUTROPHILS PERCENT AUTO 61 % (41-73); Platelet Count 165 K/mm3 (150-400); RDW Coefficient Variation 13.9 % (11.7-14.2); RDW Standard Deviation 42.8 fL (35.1-46.3); Red Blood Cell Count 5.65 M/mm3 (4.30-5.90); White Blood Cell Count 7.59 K/mm3 (4.00-11.30)
[2023-05-18 16:04] LABS: Albumin, Blood 3.1 g/dL (3.4-5.0); Albumin/Globulin Ratio 0.7 (0.8-1.8); Bilirubin, Total 0.6 mg/dL (0.1-1.0); Bun/Creatinine Ratio 13.2 (12.0-20.0); Calcium, Blood 9.6 mg/dL (8.5-10.1); Creatinine, Blood 1.29 mg/dL (0.60-1.20); Globulin, Blood 4.5 g/dL (2.2-4.0); Potassium, Blood 4.4 mmol/L (3.5-5.5); Thyroid Stimulating Hormone 2.7 uIU/mL (0.360-4.800); Total Protein, Blood 7.6 g/dL (6.4-8.2)
[2023-05-18 22:01] VITALS: BP 109/88
--- NOTE | 2023-05-19 04:40 | NUR ---
SHIFT SUMMARY NOC ADMIT FROM ED WITH DX OF ACUTE CONSTIPATION. PT WAS GIVEN MIRALAX AND LACTULOSE IN ED. PT THEN HAD 3 XL INCONTINENT STOOLS, THE FIRST WAS PARTIALLY FORMED. EVENING SCHEDULED BOWEL CARE RX WAS HELD. PT HAS EXTENSIVE SKIN ISSUES FROM BEING BEDBOUND BASELINE/INCONTINENT AND HAS EXCORIATION AND RASHES SCATTERED T/O. PT HAS IV INFUSING NS @ 150 ML/HR. , AND IS ON CLEAR LIQUID DIET CURRENTLY. PT REQUIRES 2-3 MAX ASSIST TOTAL CARE FOR NEEDS. PT USES CPAP AT HOME FOR SLEEP AND ORDER OBTAINED, AWAITING RT TO SET UP FOR PT. PT IS A/O X 4. PT IS CURRENTLY RESTING WITH BED IN LOWEST POSITION, AND CALL LIGHT WITHIN REACH.
[2023-05-19 04:43] VITALS: BP 127/89
[2023-05-19 05:33] LABS: BASOPHILS ABSOLUTE AUTO 0.07 K/mm3 (0.00-0.23); BASOPHILS PERCENT AUTO 1 % (0-2); EOSINOPHILS ABSOLUTE AUTO 0.74 K/mm3 (0.00-0.68); EOSINOPHILS PERCENT AUTO 10 % (0-6); Hematocrit 41.9 % (37.0-53.0); Hemoglobin 13.8 g/dL (13.5-17.5); IMMATURE GRAN ABSOLUTE AUTO 0.01 K/mm3 (0.00-0.10); IMMATURE GRAN PERCENT AUTO 0 % (0-1); LYMPHOCYTES ABSOLUTE AUTO 1.21 K/mm3 (0.84-5.20); LYMPHOCYTES PERCENT AUTO 16 % (21-46); MONOCYTES ABSOLUTE AUTO 0.83 K/mm3 (0.16-1.47); MONOCYTES PERCENT AUTO 11 % (4-13); Mean Corpuscular HGB Conc 32.9 g/dL (31.5-36.5); Mean Corpuscular Volume 85 fL (80-100); Mean Platelet Volume 9.3 fL (9.1-12.4); NEUTROPHILS ABSOLUTE AUTO 4.61 K/mm3 (1.96-9.15); NEUTROPHILS PERCENT AUTO 62 % (41-73); Platelet Count 211 K/mm3 (150-400); RDW Standard Deviation 43.5 fL (35.1-46.3); Red Blood Cell Count 4.93 M/mm3 (4.30-5.90); White Blood Cell Count 7.47 K/mm3 (4.00-11.30)
[2023-05-19 05:55] LABS: Albumin, Blood 2.6 g/dL (3.4-5.0); Albumin/Globulin Ratio 0.7 (0.8-1.8); Bilirubin, Total 0.7 mg/dL (0.1-1.0); Bun/Creatinine Ratio 14.4 (12.0-20.0); Calcium, Blood 8.6 mg/dL (8.5-10.1); Creatinine, Blood 1.18 mg/dL (0.60-1.20); Globulin, Blood 3.8 g/dL (2.2-4.0); Magnesium, Blood 1.7 mg/dL (1.6-2.4); Potassium, Blood 3.7 mmol/L (3.5-5.5); Total Protein, Blood 6.4 g/dL (6.4-8.2)
[2023-05-19 07:44] VITALS: BP 159/83
--- NOTE | 2023-05-19 14:01 | NUR ---
PATIENT CARE PATIENT DECLINING TURNS AND REPOSITIONS, DECLINING LUIGI CARE HYGIENE. STATES HE DOESN'T NEED EITHER PERFOMED, A/O X3.
--- NOTE | 2023-05-19 14:38 | NUR ---
PHYSICIAN CONTACT CONTACTED DR COMER REGARDING CONTINUED NAUSEA AND NEW COMPLAINTS OF ABDOMINAL PAIN. NO ORDERS GIVEN, STATED SHE WOULD PUT THEM IN HERSELF. WILL CONTINUE TO MONITOR
[2023-05-19 16:01] VITALS: BP 185/107
--- NOTE | 2023-05-19 16:28 | NUR ---
SHIFT SUMMARY PATIENT CONTINUED TO DECLINE REPOSITIONING THROUGHOUT THE SHIFT, EDUCATION PROVIDED REGARDING PRESSURE INJURIES. ALLOWED LUIGI CARE AND HYGIENE, SKIN PROTECT CREAM APPLIED AND FOLDS WASHED WELL. AFTER DOC ROUNDING IN AM PATIENT BEGAN C/O NAUSEA, MEDICATED SEVERAL TIMES WITH LITTLE RELIEF. WILL CONTINUE TO MONITOR
[2023-05-19 19:54] VITALS: BP 133/84
[2023-05-20 02:20] VITALS: BP 124/75
--- NOTE | 2023-05-20 03:36 | NUR ---
PT EDUCATED ON [facility] FIRE SAFETY IGNITION SOURCES/EXPLOSIVES NON SMOKING POLICY AND VERBALIZED UNDERSTANDING OF EDUCATION.
--- NOTE | 2023-05-20 04:10 | NUR ---
SHIFT SUMMARY NOC PT A/O X 4. PLEASANT AND COOPERATIVE WITH CARE. PT HAS HAD C/O OF UPSET STOMACH/NAUSEA AND WAS MEDICATED PER EMAR. PT REFUSED BOWEL CARE RX DUE TO MULTIPLE LOOSE STOOLS PAST DAY AND A HALF. PT HAS BEEN INC OF URINE X 1. PT REFUSED REPOSITIONING REPORTING THAT IS WAS TOO PAINFUL. BARRIER CREAM APPLIED TO SKIN WHEN CHANGING PADS. RT SET UP CPAP/BIOX FOR PT MAINTAINING SPO2 >92%. PT IS CURRENTLY RESTING WITH BED IN LOWEST POSITION, AND CALL LIGHT WITHIN REACH.
[2023-05-20 05:15] LABS: BASOPHILS ABSOLUTE AUTO 0.07 K/mm3 (0.00-0.23); BASOPHILS PERCENT AUTO 1 % (0-2); EOSINOPHILS ABSOLUTE AUTO 0.54 K/mm3 (0.00-0.68); EOSINOPHILS PERCENT AUTO 9 % (0-6); Hematocrit 41.8 % (37.0-53.0); Hemoglobin 13.5 g/dL (13.5-17.5); IMMATURE GRAN ABSOLUTE AUTO 0.01 K/mm3 (0.00-0.10); IMMATURE GRAN PERCENT AUTO 0 % (0-1); LYMPHOCYTES ABSOLUTE AUTO 1.19 K/mm3 (0.84-5.20); LYMPHOCYTES PERCENT AUTO 20 % (21-46); MONOCYTES ABSOLUTE AUTO 0.93 K/mm3 (0.16-1.47); MONOCYTES PERCENT AUTO 15 % (4-13); Mean Corpuscular HGB 27.7 pg (26.0-34.0); Mean Corpuscular HGB Conc 32.3 g/dL (31.5-36.5); Mean Corpuscular Volume 86 fL (80-100); Mean Platelet Volume 9.6 fL (9.1-12.4); NEUTROPHILS ABSOLUTE AUTO 3.32 K/mm3 (1.96-9.15); NEUTROPHILS PERCENT AUTO 55 % (41-73); Platelet Count 190 K/mm3 (150-400); RDW Standard Deviation 43.9 fL (35.1-46.3); Red Blood Cell Count 4.87 M/mm3 (4.30-5.90); White Blood Cell Count 6.06 K/mm3 (4.00-11.30)
[2023-05-20 05:45] LABS: Albumin, Blood 2.6 g/dL (3.4-5.0); Albumin/Globulin Ratio 0.7 (0.8-1.8); Bilirubin, Total 0.6 mg/dL (0.1-1.0); Bun/Creatinine Ratio 11.1 (12.0-20.0); Calcium, Blood 8.9 mg/dL (8.5-10.1); Creatinine, Blood 1.26 mg/dL (0.60-1.20); Globulin, Blood 3.8 g/dL (2.2-4.0); Potassium, Blood 3.9 mmol/L (3.5-5.5); Total Protein, Blood 6.4 g/dL (6.4-8.2)
[2023-05-20 07:30] VITALS: BP 146/87
--- NOTE | 2023-05-20 10:00 | NUR ---
RECEIVED PHONE CALL WITH ORDERS FROM DR. HARDING, RN TO ENTER ORDERS. ABD ULTRASOUND, LACTULOSE FOUR TIMES DAILY, AND TRAZODONE HOME MED ADDED.
--- NOTE | 2023-05-20 11:18 | NUR ---
PT'S PARTNER VENTURA IS AT HIS BEDSIDE. PT STATES HE DOESN'T WANT TO TAKE HIS PO MEDICATION NOW. RN ASSISTED PT TO PLACE THE CPAP MASK IN A COMFORTABLE POSITION, HE WANTS TO TRY TO TOLERATE THE CPAP WHILE HE GETS SOME SLEEP. PT STATES HE'S ENTERING A "PANIC STATE" BECAUSE HE HASN'T SLEPT.
--- NOTE | 2023-05-20 15:08 | NUR ---
RN ASSISTED PT WITH MASK FITTING FOR CPAP, PT FINALLY SLEEPING THIS AFTERNOON.
[2023-05-20 15:32] VITALS: BP 138/94
--- NOTE | 2023-05-20 16:06 | NUR ---
PT SLEEPING WITH CPAP ON 8-20 PRESSURE, 2 LITERS OF OXYGEN TO MAINTAIN SATS >90%. RESP THERAPIST CONSULTED.
--- NOTE | 2023-05-20 18:22 | NUR ---
RN DISCUSSED WITH PT - PT STATES THAT HIS PLAN IS TO GO HOME AFTER DISCHARGE. PT SPENT MOST OF THE SHIFT ATTEMPTING TO SLEEP, STATING THAT HE WAS GOING TO ENTER "PANIC MODE" UNLESS HE SLEPT. RN AND RESPIRATORY THERAPY CONSULTED, AND PT WAS STARTED ON 2LPM OXYGEN WITH THE CPAP ON THE 8-20 SETTING. THIS ENABLED TO SLEEP AND MAINTAIN SATS GREATER THAN 02%. WITHOUT THE BLED IN OXYGEN, PT WAS DROPPING TO LOW 80'S WHILE SLEEPING. PT DURING THE DAY IS ROOM AIR. LIFT PT. IV ACCESS TO LEFT UPPER EXTREMITY. CONTINENT/INCONTINENT, USES FEMALE URINAL. LARGE BODY HABITUS WITH MANY SKIN FOLDS, IMMOBILE AT BASELINE. PT DECLINES OFFERS OF PERSONAL CARE, AND DENIES PAIN AND N/V AT THIS TIME. REPORTS PASSING GAS. PASSING GAS.
[2023-05-20 20:00] VITALS: BP 139/98
[2023-05-21 04:35] VITALS: BP 147/86
--- NOTE | 2023-05-21 05:16 | NUR ---
SHIFT SUMMARY PT MEDICATED FOR PAIN "ALL OVER" EARLY IN THE SHIFT. RESTING WITH RESPIRATIONS EVEN & UNLABORED WITH CPAP IN PLACE SINCE. REPOSITIONED TO HELP WITH COMFORT AND SKIN INTEGRETY. BED BATH GIVEN OVERNIGHT AND MICONAZOLE POWDER APPLIED TO FOLDS. NO OTHER ACUTE CHANGES IN ASSESSMENT AT THIS TIME. VS REVIEWED. CALL LIGHT IN REACH.
[2023-05-21 08:13] VITALS: BP 134/77
--- NOTE | 2023-05-21 09:30 | NUR ---
pt laying in bed with cpap in place, wants to sleep some more, a/ox4, states he's been having bm's, refusing miralax and lactalose, agreed to take the milder ones, lungs are dim t/o, resp even and unlabored, no cough noted, hrr, briefs in place and uses urinal with assist, piv to rac site is clear and patent, skin has yeast rash, medication ordered for that, moves arms, is bed rest, 3 person to turn him, call light in reach.
--- NOTE | 2023-05-21 13:54 | NUR ---
pt states his knees are hurting, tylenol given, had an unformed stool this afternoon. call light in reach.
--- NOTE | 2023-05-21 14:58 | NUR ---
Pt had another liquid bm, cleansed him and changed chux under him, placed a mepilex on a small open area to left flank, call light in reach.
[2023-05-21 16:17] VITALS: BP 135/99
--- NOTE | 2023-05-21 18:05 | NUR ---
Pt complained of knee pain, gave tylenol, didn't help, recieved order for his home dose of tramadol, this was given, has had four liquid stools today and refused the afternoon lactulose, changed the dressing on his right chest after cleansing, did have small amount of purulent drainage, no further changes this shift. call light in reach.
[2023-05-21 19:19] VITALS: BP 149/89
[2023-05-22 05:09] LABS: BASOPHILS ABSOLUTE AUTO 0.05 K/mm3 (0.00-0.23); BASOPHILS PERCENT AUTO 1 % (0-2); EOSINOPHILS ABSOLUTE AUTO 0.59 K/mm3 (0.00-0.68); EOSINOPHILS PERCENT AUTO 10 % (0-6); Hematocrit 41.2 % (37.0-53.0); Hemoglobin 13.3 g/dL (13.5-17.5); IMMATURE GRAN ABSOLUTE AUTO 0.01 K/mm3 (0.00-0.10); IMMATURE GRAN PERCENT AUTO 0 % (0-1); LYMPHOCYTES ABSOLUTE AUTO 1.35 K/mm3 (0.84-5.20); LYMPHOCYTES PERCENT AUTO 23 % (21-46); MONOCYTES ABSOLUTE AUTO 0.83 K/mm3 (0.16-1.47); MONOCYTES PERCENT AUTO 14 % (4-13); Mean Corpuscular HGB 27.4 pg (26.0-34.0); Mean Corpuscular HGB Conc 32.3 g/dL (31.5-36.5); Mean Corpuscular Volume 85 fL (80-100); Mean Platelet Volume 9.4 fL (9.1-12.4); NEUTROPHILS ABSOLUTE AUTO 3.05 K/mm3 (1.96-9.15); NEUTROPHILS PERCENT AUTO 52 % (41-73); Platelet Count 191 K/mm3 (150-400); RDW Coefficient Variation 13.6 % (11.7-14.2); RDW Standard Deviation 42.5 fL (35.1-46.3); Red Blood Cell Count 4.85 M/mm3 (4.30-5.90); White Blood Cell Count 5.88 K/mm3 (4.00-11.30)
[2023-05-22 05:46] LABS: Albumin, Blood 2.6 g/dL (3.4-5.0); Albumin/Globulin Ratio 0.7 (0.8-1.8); Bilirubin, Total 0.6 mg/dL (0.1-1.0); Bun/Creatinine Ratio 9.5 (12.0-20.0); Calcium, Blood 8.8 mg/dL (8.5-10.1); Creatinine, Blood 1.16 mg/dL (0.60-1.20); Globulin, Blood 3.6 g/dL (2.2-4.0); Potassium, Blood 3.6 mmol/L (3.5-5.5); Total Protein, Blood 6.2 g/dL (6.4-8.2)
[2023-05-22 05:57] VITALS: BP 150/85
--- NOTE | 2023-05-22 06:14 | NUR ---
SHIFT SUMMARY PT ABD, LUIGI, & BREAST FOLDS CLEANSED AND MICONAZOLE POWDER REAPPLIED ORDERED. THIS IS PAINFUL FOR THE PT MANY OF THE FOLDS HAVE SPLIT A RESULT OF THE RASH. OTHERWISE PT DENIED NEED FOR PAIN MEDS THIS SHIFT. ORIENTED & COOPERATIVE T/O SHIFT. RESTING COMFORTABLY WITH RESPIRATIONS EVEN & UNLABORED T/O NIGHT. CPAP READJUSTED ONCE FOR A BETTER FIT. PHOTO OF WOUND ON CHEST TAKEN AND PLACED IN CHART. DRESSING ALSO CHANGED. PT COOPERATIVE AND HELPFUL WITH REPOSITIONS. 2-3 PEOPLE NEEDED FOR THIS HOWEVER. NO OTHER ACUTE CHANGES IN ASSESSMENT AT THIS TIME. VS REVIEWED. CALL LIGHT IN REACH. DENIES OTHER NEEDS AT THIS TIME.
[2023-05-22 08:10] VITALS: BP 137/76
--- NOTE | 2023-05-22 15:00 | NUR ---
DISCHARGE AND SHIFT SUMMARY PATIENT DISCHARGED HOME VIA MEDICAL TRANSPORT. PATIENT ALERT AND COOPERATIVE. PATIENT BEDBOUND AT HOME. PATIENT ABLE TO ATTEMPT TO HELP WITH TURNING. DRESSINGS OVER WOUNDS DRY AND INTACT. 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 PATIENT STATES HE HAS ASSISTANCE AT HOME FOR WOUND CARE. PCP SEES PATIENT AT HIS HOME. PATIENT EDUCATED ON OPTIONS TO PREVENT FURTHER EPISODES OF CONSTIPATION. BELONGINGS SENT HOME WITH PATIENT. NO CHANGES IN MEDICATIONS. RIDE ARRIVED PRIOR TO DISCHARGE PAPERWORK BEING COMPLETED.
== END 2023-05-22 15:10 | disposition home or self-care (01) | DRG 392 ==
LOC: ER 14:21 → MEDS 14:22 → ENPENDDIS 05-22 13:51 → MEDS 05-22 15:10
PROVIDERS: Emergency Medicine; ADMIT Student in an Organized Health Care Education/Training Program
PROC: 5A09357 Assistance with Respiratory Ventilation, Less than 24 Consecutive Hours, Continuous Positive Airway Pressure (ICD-10-PCS; principal; 2023-05-21)
DX: K59.09 Other constipation (principal); I48.19 Other persistent atrial fibrillation; Z68.45 Body mass index [BMI] 70 or greater, adult; E66.01 Morbid (severe) obesity due to excess calories; I25.10 Atherosclerotic heart disease of native coronary artery without angina pectoris; I10 Essential (primary) hypertension; M19.90 Unspecified osteoarthritis, unspecified site; Z87.891 Personal history of nicotine dependence; Z86.718 Personal history of other venous thrombosis and embolism; Z86.711 Personal history of pulmonary embolism; Z79.01 Long term (current) use of anticoagulants; Z88.5 Allergy status to narcotic agent; Z91.038 Other insect allergy status; Z79.899 Other long term (current) drug therapy; Z86.19 Personal history of other infectious and parasitic diseases; Z86.79 Personal history of other diseases of the circulatory system
CPT/HCPCS: 36415; 74018; 80053; 82947; 83605; 83690; 83735; 84443; 85025; 94660; 94762; 96360; 96361; 96374; 96375; 96376; 99285-25; A9270; G0378; J2405; J2765; J7030

== ENCOUNTER 2023-06-08 10:24 | Emergency (ER) | payer OTHER ==
[~2023-06-08] VITALS: Ht 182.9 cm; Wt 205.0 kg
[2023-06-08 11:30] VITALS: BP 160/106
[2023-06-08] MEDS ORDERED: Kristalose20 GM PO (14:01)
[2023-06-08] MEDS ORDERED: ONDA4ODT SL (14:01)
== END 2023-06-08 16:12 | disposition home or self-care (01) ==
LOC: ER 10:24
DX: K59.00 Constipation, unspecified (principal); E66.01 Morbid (severe) obesity due to excess calories; Z91.030 Bee allergy status; Z88.5 Allergy status to narcotic agent; Z79.899 Other long term (current) drug therapy; I48.91 Unspecified atrial fibrillation; Z87.891 Personal history of nicotine dependence
CPT/HCPCS: 99284; A9270

== ENCOUNTER 2024-02-18 17:35 | Emergency (ER) | payer OTHER ==
[~2024-02-18] VITALS: Ht 182.9 cm; Wt 161.0 kg
[2024-02-18 21:56] VITALS: BP 88/77
== END 2024-02-18 22:27 | disposition home or self-care (01) ==
LOC: ER 17:35
DX: I12.9 Hypertensive chronic kidney disease with stage 1 through stage 4 chronic kidney disease, or unspecified chronic kidney disease (principal); N18.30 Chronic kidney disease, stage 3 unspecified; D63.1 Anemia in chronic kidney disease; R10.13 Epigastric pain; E87.1 Hypo-osmolality and hyponatremia; E83.51 Hypocalcemia; E16.2 Hypoglycemia, unspecified; I48.91 Unspecified atrial fibrillation; M19.90 Unspecified osteoarthritis, unspecified site; J45.909 Unspecified asthma, uncomplicated; G47.33 Obstructive sleep apnea (adult) (pediatric); Z99.89 Dependence on other enabling machines and devices; F32.A Depression, unspecified; Z87.891 Personal history of nicotine dependence; Z91.030 Bee allergy status; Z88.5 Allergy status to narcotic agent; Z79.899 Other long term (current) drug therapy